=== PATIENT | male | born 1950 | race Caucasian/White ===

== ENCOUNTER 2017-07-14 19:32 | Inpatient (IN) | payer MEDICARE, MEDICAID ==
[2017-07-14 20:10] VITALS: BP 143/74
[2017-07-14] MEDS ORDERED: Maalox 30 mL Cup PO PRN (20:18)
[2017-07-14] MEDS ORDERED: Magnesium Hydroxide (MOM) 30 mL UDC PO PRN (20:18)
[2017-07-15 06:49] LABS: ALB/GLOB RATIO 1.1 (1.0-1.8); ALKALINE PHOSPHATASE 70 U/L (34-104); ANION GAP 9.3 (7.0-16.0); BILIRUBIN,TOTAL 0.2 mg/dL (0.3-1.0); BUN - UREA NITROGEN 24 mg/dL (7-25); BUN/CREATININE RATIO 26.7; CALCIUM SERUM 9.1 mg/dL (8.6-10.3); CARBON DIOXIDE 27.5 mEq/L (21.0-31.0); CHLORIDE 105 mEq/L (98-107); CREATININE - SERUM 0.9 mg/dL (0.7-1.3); GLUCOSE 134 mg/dL (70-105); POTASSIUM SERUM 3.8 mEq/L (3.5-5.1); SGOT 11 U/L (13-39); SGPT/ALT 9 U/L (7-52); SODIUM SERUM 138 mEq/L (136-145)
[2017-07-15] MEDS: Multivitamin Tab PO SCH (09:53)
--- NOTE | 2017-07-15 12:00 | Psychosocial Evaluation ---
DATE OF SERVICE: AGE: 67. SEX: Male. PHYSICIAN: Dr. Bullard. CHIEF COMPLAINT: "I want to kill myself." HISTORY OF PRESENT ILLNESS: The patient is a 67-year-old male with history of what seems to be bipolar disorder. The patient was placed on 5150 hold because of suicidal ideations with plan to jump in front of traffic according to the hold that was written by Police. The patient has history of multiple suicidal attempts and history of what seems to be bipolar disorder. The patient is taking Risperdal, Zyprexa. He is severely anxious and severely depressed. The patient lives in a [facility] and has been having lack of motivations and lack of energy. Also, has been having severe mood swings and severe anxiety. The patient has history of suicidal attempts by overdose on pills or cutting himself. PAST PSYCHIATRIC HISTORY: The patient has history of bipolar and previous treatment and hospitalization. He is currently taking Zyprexa, Risperdal, and Depakote. PAST MEDICAL HISTORY: The patient is a ild-ahlplqc-qdebdquwg diabetic and hypertensive. FAMILY PSYHIATRIC AND CHEMICAL DEPENDENCY HISTORY: Not known. CHEMICAL DEPENDENCY HISTORY FOR THE PATIENT: The patient denies alcohol or drug use. SOCIAL HISTORY: The patient is single, never and has no children. The patient said that he thinks that he was and his , but it is not clear if that is true. The patient is on disability. He denies legal issues or abuse issues. ALLERGIES: INSULIN AND SULFA. MENTAL STATUS EXAMINATION: The patient appears older than his stated age. Anxious. Irritable mood. Angry. Disheveled. Thought processes are circumstantial with flight of ideas. The patient denies auditory or visual hallucinations, but seems to be suspicious and paranoid. The patient admits to suicidal ideations with plan, but denies homicidal ideations. The patient is alert and oriented to time, place, person, and situation. Intact immediate, recent and remote memories. Poor insight and he does not think he needs to be in the hospital. Poor judgment and he wants to jump in front of traffic. He seems to be of average intelligence based on his verbal ability. ASSESSMENT: PRIMARY DIAGNOSIS: Bipolar disorder, depressed phase. MEDICAL DIAGNOSIS: 1. Wbb-lrokiyg-kakwtonuf diabetes mellitus. 2. Hypertension. TREATMENT PLAN: The patient was taking Risperdal and Zyprexa, and we will gradually decrease Zyprexa because he said it made him dizzy and we will give Risperdal. Also, we will monitor Depakote blood level. Also, we will work on his ineffective coping. ESTIMATED LENGTH OF STAY: 7-10 days. THE PATIENT'S STRENGTHS AND WEAKNESSES: The patient's seems to be in relatively fair health. Weakness is his ineffective coping. AFTER DISCHARGE PLAN: The patient will return to [facility] with plans for outpatient treatment and follow up there. The patient also is a candidate for partial program. CRITERIA FOR DISCHARGE: The patient will not be suicidal and will stabilize with psychotropic medications. JOB# [id number]
[2017-07-16] MEDS: Multivitamin Tab PO SCH ×2 (09:06→09:22)
[2017-07-16] MEDS: Nicotine 14 mg/24 hr Tdm TD SCH (09:15)
--- NOTE | 2017-07-16 13:03 | Progress Notes ---
DATE: SUBJECTIVE: Chart reviewed and the patient interviewed. Also discussed the patient's condition with the staff and reviewed records and labs. The patient is still extremely agitated and in irritable mood. The patient also is suspicious and paranoid. Also, is still wandering around the unit in angry and confused state. Also, is still disheveled and he is also uncooperative with the staff, especially when they try to redirect him. The patient also is still feeling hopeless and he has no place to go. ASSESSMENT: The patient is still psychotic and can be dangerous to others and self. TREATMENT PLAN: We will continue monitoring his behavior and his condition closely. Also, yesterday, the patient refused to take the psych medications. Discussed with the patient the importance of taking the psych medications, and benefits and alternatives, and hopefully he will start to take it today. JOB# [id number]
--- NOTE | 2017-07-16 14:30 | History & Physical ---
ADMIT DATE: 07/14/2017 REASON FOR ADMISSION: Mental health disorder. HISTORY OF PRESENT ILLNESS: This is a 67-year-old male with underlying history of hypertension, diabetes, nicotine dependency, and mental psychiatric disorder, was admitted to [facility] for evaluation of underlying mental disorder by Dr. Xiong. Dr. Xiong requested medical H and P on this patient. The patient at the time of evaluation, he is doing fine. Denies any chest pain, no shortness of breath, no dizziness, no palpitations or any vomiting, diarrhea, any abdominal pain, or any other complaints. PAST MEDICAL HISTORY: Diabetes and hypertension. PAST SURGICAL HISTORY: Denies. FAMILY HISTORY: Noncontributory. SOCIAL HISTORY: Lives at home, ex-smoker. Denies any current alcohol, tobacco or street drug use. CURRENT MEDICATIONS: Tylenol, Maalox, Zestril, Ativan, milk of magnesia, Glucophage, Zyprexa, Risperdal, nicotine, Depakote, and Ambien. REVIEW OF SYSTEMS: As per HPI, 12-point system appears negative. PHYSICAL EXAMINATION: VITAL SIGNS: Temperature 97.9, pulse 65, respirations 20, blood pressure 142/60, and oxygen 94% on room air. Pain 0/10. GENERAL APPEARANCE: The patient does not seem in acute distress. CARDIOVASCULAR: S1 and S2 normal. LUNGS: Clear to auscultation. ABDOMEN: Soft, nontender. No distention. NEUROLOGIC: The patient is awake. Moves all extremities. Grossly nonfocal exam. EXTREMITIES: No edema. AVAILABLE LABORATORY DATA: Sodium 130, potassium 3.8, BUN ____, creatinine 0.9, AST 11, ALT 9. Nares swab negative for MRSA. ASSESSMENT: 1. Hypertension. 2. Diabetes mellitus. 3. Nicotine dependence. 4. Mental disorder. PLAN: Continue patient's metformin, lisinopril, and nicotine patch. Psych management per psychiatrist. The patient has been medically stable to participate in activity at the [facility]. JOB# [id number]
[2017-07-17] MEDS: Multivitamin Tab PO SCH (09:13)
[2017-07-17] MEDS: Nicotine 14 mg/24 hr Tdm TD SCH (09:20)
--- NOTE | 2017-07-17 23:17 | Progress Notes ---
DATE: 07/17/2017 SUBJECTIVE: Chart reviewed and the patient interviewed. Also, discussed the patient's condition with the staff and reviewed records and labs. The patient is still angry and he is still in irritable mood. The patient also is argumentative and he is still threatening others. He also is demanding. The patient also is still unable to provide any safe plan for self-care. Also, refusing to take psych medications for no apparent reason. During interview, the patient is disheveled and he is in angry and in irritable mood. Also, thought processes are circumstantial with flight of ideas. ASSESSMENT: The patient is still psychotic. TREATMENT PLAN: I advised the patient to take his psychotropic medications and I discussed with him benefits, side effects, and alternatives. Hopefully, the patient will start to take the medications. Also, we will continue to work on his poor impulse control and his paranoia. JOB# [id number]
[2017-07-18] MEDS: Nicotine 14 mg/24 hr Tdm TD SCH (08:32)
[2017-07-18] MEDS: Multivitamin Tab PO SCH (08:32)
--- NOTE | 2017-07-19 02:56 | Progress Notes ---
DATE: 07/18/2017 SUBJECTIVE: Chart reviewed and the patient interviewed. Also discussed the patient's condition with the staff and reviewed records and labs. The patient continued to be extremely angry and extremely agitated. The patient also is still in irritable mood. Also, he is still having mood swings and he is still at times calm and cooperative and other times is agitated and demanding. Also, still resisting care and is still not compliant with taking his medications. ASSESSMENT: The patient is still psychotic and can be dangerous to others. TREATMENT PLAN: We will continue monitoring his behavior and his condition closely. Also, continue to work on his irritability and also he is compliant with taking his medications and we will continue to follow up. PSYCHIATRIC# [id number]
[2017-07-19] MEDS: Nicotine 14 mg/24 hr Tdm TD SCH (08:55)
[2017-07-19] MEDS: Multivitamin Tab PO SCH (08:56)
--- NOTE | 2017-07-19 21:34 | Progress Notes ---
DATE: SUBJECTIVE: The patient seen, chart reviewed, discussed with staff. The patient is currently in the hospital, suicidal, plan to jump in front of traffic, history of multiple suicide attempts, history of bipolar, anxious, overwhelmed. No motivation, lack of energy, mood swings. The patient on [id number] states he feels clinically okay. He does not know where he is or why he is here, still gets angry, still impulsive, ____ SI however. ASSESSMENT: The patient remains symptomatic, depressed, isolative, seems confused, disoriented, mood swings, concerns for continue agitation. PLAN: Continue to monitor. Given the severity of the patient's ongoing symptoms, he is not safe for discharge. Medications were reviewed in detail. JOB# [id number]
[2017-07-20] MEDS: Multivitamin Tab PO SCH (08:46)
[2017-07-20] MEDS: Nicotine 14 mg/24 hr Tdm TD SCH (08:46)
--- NOTE | 2017-07-20 12:12 | Progress Notes ---
DATE: SUBJECTIVE: The patient seen, chart reviewed, discussed with staff. The patient is currently in the hospital, suicidal, plan to jump in front of traffic, history of multiple suicide attempts, history of apparently bipolar. The patient still responding to internal stimuli, still noted to be confused, disoriented, not safe for a lower level of care, still with behaviors indicative of ongoing symptoms, still with some periods of agitation, irritability. Medications reviewed. No side effects noted. PLAN: We will continue to monitor. The patient is not safe for discharge. Still noted to be confused, suspicious, guarded, labile. We will monitor and follow up. JOB# [id number]
[2017-07-21] MEDS: Multivitamin Tab PO SCH (09:14)
[2017-07-21] MEDS: Nicotine 14 mg/24 hr Tdm TD SCH (09:19)
--- NOTE | 2017-07-22 01:34 | Progress Notes ---
DATE: 07/21/[address] Bullard. Case was discussed with staff of the patient, reviewed records. This is a 67-year-old male who was admitted on 07/14/2017 with a history of bipolar disorder. I was keeping ____ discharge. He planned to jump in front of traffic. He was brought by the police with a history of multiple suicide attempts and history of bipolar disorder. The patient was also on Zyprexa. He was anxious, depressed. He lives in a boarding care facility with lack of motivation and energy, severe mood swings, irritability. He has a history of prior suicide attempt by overdose and cutting. The patient currently continues to be depressed, overwhelmed, but he is minimizing any current intent to harm himself or anybody. He is on Zyprexa 5 mg twice a day, Risperdal 1 mg twice a day with no side effects, no sedation, and no nausea. He is also on Depakote 500 mg twice a day. I will be increasing his Risperdal to 2 mg twice a day. So far no side effects, no sedation, no nausea and no extrapyramidal symptoms. We will continue to work with the patient in group therapy, milieu therapy, and adjust the medications as needed. JOB# [id number]
[2017-07-22] MEDS: Nicotine 14 mg/24 hr Tdm TD SCH (10:55)
[2017-07-22] MEDS: Multivitamin Tab PO SCH (10:55)
--- NOTE | 2017-07-23 00:15 | Progress Notes ---
DATE: 07/22/2017 Case was discussed with staff of the patient, reviewed records. Covering for Dr. Bullard. The patient continues to be depressed. He is minimizing any current intent to harm himself. Upon admission, he said wanted something ____. He had multiple suicide attempts with a history of bipolar disorder. The patient has been refusing medication also by the staff today, so may have to be ____ and I talked to the patient about the reason. I discussed with him the side effects of his medication but he smiled inappropriately, so he may need to be ____ decision up to Dr. Bullard tomorrow since I cannot initiate it for him as I am not sure what time would be appropriate for him. I will continue outpatient group therapy, milieu therapy, adjust medications as needed. JOB# [id number]
[2017-07-23] MEDS: Multivitamin Tab PO SCH (10:05)
[2017-07-23] MEDS: Nicotine 14 mg/24 hr Tdm TD SCH (10:06)
--- NOTE | 2017-07-23 13:07 | General Progress Note ---
Subjective - Review of Systems Service Date: 07/23/17 Subjective: Patient seen and examined denied any complaints Objective - Results Result Diagrams: 07/15/17 06:28 Recent Labs: Laboratory Last Values Sodium 138 mEq/L (136-145) 07/15/17 06:28 Potassium 3.8 mEq/L (3.5-5.1) 07/15/17 06:28 Chloride 105 mEq/L (98-107) 07/15/17 06:28 Carbon Dioxide 27.5 mEq/L (21.0-31.0) 07/15/17 06:28 Anion Gap 9.3 (7.0-16.0) 07/15/17 06:28 BUN 24 mg/dL (7-25) 07/15/17 06:28 Creatinine 0.9 mg/dL (0.7-1.3) 07/15/17 06:28 Est GFR ( Amer) > 60.0 ml/min (>90) 07/15/17 06:28 Est GFR (Non-Af Amer) > 60.0 ml/min 07/15/17 06:28 BUN/Creatinine Ratio 26.7 07/15/17 06:28 Glucose 134 mg/dL (70-105) H 07/15/17 06:28 POC Glucose 171 MG/DL (70 - 105) H 07/22/17 22:30 Calcium 9.1 mg/dL (8.6-10.3) 07/15/17 06:28 Total Bilirubin 0.2 mg/dL (0.3-1.0) L 07/15/17 06:28 AST 11 U/L (13-39) L 07/15/17 06:28 ALT 9 U/L (7-52) 07/15/17 06:28 Alkaline Phosphatase 70 U/L (34-104) 07/15/17 06:28 Total Protein 7.3 gm/dL (6.0-8.3) 07/15/17 06:28 Albumin 3.8 gm/dL (4.2-5.5) L 07/15/17 06:28 Globulin 3.5 gm/dL 07/15/17 06:28 Albumin/Globulin Ratio 1.1 (1.0-1.8) 07/15/17 06:28 Valproic Acid < 10.0 ug/mL (50.0-100.0) L 07/15/17 06:28 - Physical Exam Vitals and I&O: Vital Signs Temp 0 F 07/23/17 06:49 Pulse 77 07/23/17 10:05 Resp 20 07/22/17 21:00 BP 139/71 07/23/17 10:05 Pulse Ox 94 07/22/17 21:00 Intake & Output 07/22/17 07/23/17 07/23/17 18:59 06:59 18:59 Intake Total 1000 240 Balance 1000 240 Intake: Oral 1000 240 Other: # Voids 4 3 # Bowel Movements 1 0 Active Medications: Current Medications Acetaminophen (Tylenol) 650 mg PO Q4HR PRN PRN Reason: Mild Pain / Temp above 100 Stop: 09/12/17 20:17 Last Admin: 07/22/17 21:45 Dose: 650 mg Al Hydrox/Mg Hydrox/Simethicone (Maalox) 30 ml PO Q4HR PRN PRN Reason: GI DISTRESS Stop: 09/12/17 20:17 Lisinopril (Zestril) 10 mg PO DAILY DEBBI Stop: 09/13/17 08:59 Last Admin: 07/23/17 10:05 Dose: 10 mg Lorazepam (Ativan) 0.5 mg PO Q4HR PRN; Protocol PRN Reason: Agitation Stop: 09/20/17 22:37 Last Admin: 07/23/17 01:26 Dose: 0.5 mg Metformin HCl (Glucophage) 500 mg PO BIDWM DEBBI Stop: 09/13/17 07:59 Last Admin: 07/23/17 10:05 Dose: 500 mg Multivitamins/Vitamin C (Theragran) 1 tab PO DAILY DEBBI Stop: 09/13/17 08:59 Last Admin: 07/23/17 10:05 Dose: 1 tab Nicotine (Nicotine Transdermal System) 14 mg TD DAILY DEBBI Stop: 09/14/17 08:59 Last Admin: 07/23/17 10:06 Dose: Not Given Olanzapine (Zyprexa) 5 mg PO BID DEBBI PRN Reason: Protocol Stop: 09/13/17 08:59 Last Admin: 07/23/17 10:06 Dose: Not Given Risperidone (Risperdal) 2 mg PO BID DEBBI PRN Reason: Protocol Stop: 09/19/17 16:59 Last Admin: 07/23/17 10:06 Dose: Not Given Valproate Sodium (Depakene) 500 mg PO BID DEBBI PRN Reason: Protocol Stop: 09/13/17 08:59 Last Admin: 07/23/17 10:06 Dose: Not Given Zolpidem Tartrate (Ambien) 5 mg PO HS PRN PRN Reason: Insomnia Stop: 09/20/17 22:38 Cardiovascular: Regular rate Lungs: Clear to auscultation Assessment/Plan - Assessment Assessment: HTN DM II Psych disorder - Plan Plan: Medically stable Continue current meds DC planning per Psych Nutritional Asmnt/Malnutr-PDOC - Dietary Evaluation Malnutrition Findings (Please click <Entered> for more info): Nutritional Asmnt/Malnutrition Start: 07/16/17 19: 01 Text: Status: Complete Freq: Document 07/16/17 19:01 GSUN (Rec: 07/16/17 19:13 GSUN [id number]) Nutritional Asmnt/Malnutrition Patient General Information Nutritional Screening Consult Diagnosis Bipolar disorder depressed phase Pertinent Medical Hx/Surgical Hx DM, HTN Subjective Information 67 [address] consult for DM BG 188 on adm. Pt ambulates aroudn unit. Spoke to pt in rec room. Pt stated he is aware of being diabetic, has been for 15yrs, however POC glucose 119 today and wishes to be on regular diet. Biological Sciences Professor explained purpose of [facility] [place] diet, portion sizes, POC glucose vs insulin, pt unwilling to comprehend at this time. RN Johanna aware of nutrition situation. RN also stated pt is 265lb requiring larger portions. Avg PO intake 100% of meals since adm, current diet order only providing to meet 74% of lower end kcal needs with PO intake 100%. Teeth intact, no difficulties. No muscle fat wasintg noted. Current Diet Order/ Nutrition Support [id number] Pertinent Medications MOM, Glucophage, Theragran Pertinent Labs 07/15: glucose 134H Nutritional Hx/Data Height 1.85 m Height (Calculated Centimeters) 185.4 Current Weight (lbs) 120.202 kg Weight (Calculated Kilograms) 120.2 Weight (Calculated Grams) 151626.0 Usual body Weight (lbs) 265 [place] Body Weight 204 Recent Weight Change No Weight Status Obese GI Symptoms Food Allergies No Skin Integrity/Comment: [place] 19. Skin intact. Current %PO Good (75-100%) Estimated Nutritional Goals BEE in Kcals: Adj wt of IBW Calories/Kcals/Kg AdjBW 204.3lb/92.8kg Kcals Calculated 2320-2784kcal (25-30kcal/kg) Protein: Adj wt of IBW Protein Calculated 93g (1g/kg) Fluid: ml 2320-2784ml (1ml/kcal) Nutritional Problem 1. Problem Problem Inadequate protein energy intake related to Etiology estimated nutritinoal needs aeb Signs/Symptoms: current diet order only provides to meet 74% lower end kcal needs Intervention/Recommendation Comments 1. Recommend [id number] with double portion veegtable and protein to better meet nturitinoal eneds while promoting glycemic control. Current diet order only provided to meet 74% lower end kcal eneds. 2. Provied nutrition edu DM as able, pt declined at this time. Expected Outcomes/Goals Expected Outcomes/Goals 1. PO intake to meet at least 75% of estimated nutritinoal eneds.
--- NOTE | 2017-07-23 17:55 | Progress Notes ---
DATE: SUBJECTIVE: Chart reviewed and the patient interviewed. Also discussed the patient's condition with the staff and reviewed records and labs. The patient is still anxious and is still agitated and in irritable mood. The patient also is still having episodes of anger and irritability. The patient also still seems to be manipulative at time and he states things that the staff like to hear in order to continue his hospital course. He is talking about his desire to kill himself by banging his head against the wall. On the other hand, the patient is still restless and is still paranoid at times, but decreased behavioral problems. ASSESSMENT: The patient is still agitated and noncompliant with treatment and medications. TREATMENT PLAN: Still working with case resolution specialist in regard to discharge plans and so far no place accepted the patient yet. At the same time, continue to work on his compliance with medications and so far, the patient is still refusing to take any medications, but we will try to get the patient to take his psychotropic medications. Also, we will monitor his behavior closely because of his suicidal ideations. [facility]# [id number]
[2017-07-24] MEDS: Multivitamin Tab PO SCH (08:41)
[2017-07-24] MEDS: Nicotine 14 mg/24 hr Tdm TD SCH (08:42)
--- NOTE | 2017-07-24 22:29 | Progress Notes ---
DATE: 07/24/2017 SUBJECTIVE: Chart reviewed and the patient interviewed. Also discussed the patient's condition with the staff and reviewed records and labs. The patient remains in angry and in irritable mood. The patient also is still pacing up and down the unit in angry mood. Also, is still restless and he is still at times, demanding. At the same time, the patient has difficulty making decisions and is still unable to help aids social worker in order to find placement. The patient also is still uncooperative and is refusing to take medications. He also still needs lots of redirections. The patient is disheveled and he is refusing all his psych medications for no apparent reason. The patient also said that he has been hearing voices, but less than before. ASSESSMENT: The patient is still psychotic. TREATMENT PLAN: Continue to monitor his condition and his medications closely. Also, continue to work on his discharge plans and placement issue and he is being uncooperative. Also discussed with the patient the importance of taking his psych medications and also discussed benefits, side effects and alternatives with the patient. JOB# [id number]
[2017-07-25] MEDS: Multivitamin Tab PO SCH (08:08)
[2017-07-25] MEDS: Nicotine 14 mg/24 hr Tdm TD SCH (08:15)
[2017-07-26] MEDS: Multivitamin Tab PO SCH (08:25)
[2017-07-26] MEDS: Nicotine 14 mg/24 hr Tdm TD SCH (08:32)
--- NOTE | 2017-07-26 18:17 | Progress Notes ---
DATE: SUBJECTIVE: Chart reviewed and the patient interviewed. Also, discussed the patient's condition with the staff and reviewed records and labs. The patient is still extremely angry and agitated. The patient also is restless and he is in irritable mood. He also has mood swings and has severe anxiety. He also is interacting with anger and irritability. Otherwise, the patient is slightly easier to redirect him. ASSESSMENT: The patient is still psychotic and agitated. TREATMENT PLAN: The patient continued to refuse taking psychotropic medications. The patient is also in angry and irritable mood and needs close monitoring. We will continue to work on his compliance with medications and also continue to work on his discharge plans and placement issue and continue to follow up. [facility]# [id number]
--- NOTE | 2017-07-27 02:04 | Progress Notes ---
DATE: SUBJECTIVE: The patient is currently in the hospital. History of suicidal ideations, plans to jump in front of traffic. On [id number], the patient states that he feels clinically the same, "very bad, depressed, easily agitated, very irritable." States he feels like no one is helping him. He is quite anxious, depressed. The patient is still endorsing SI, not manuel for safety, still uncooperative, does not want to take medications or follow his treatment plan. ASSESSMENT: The patient remains symptomatic, still depressed, withdrawn, concerns that he may be psychotic. PLAN: We will continue to monitor. Given his ongoing symptoms, he is not safe for discharge at this time. [facility]# [id number]
[2017-07-27] MEDS: Nicotine 14 mg/24 hr Tdm TD SCH (08:35)
[2017-07-27] MEDS: Multivitamin Tab PO SCH (08:35)
--- NOTE | 2017-07-28 02:35 | Progress Notes ---
DATE: 07/27/2017 SUBJECTIVE: The patient seen, chart reviewed, discussed with staff. The patient is currently in the hospital, suicidal, thoughts to jump into traffic. On [id number], the patient states he feels" the same" depressed, overwhelmed, does not feel the medications are helping. States his voices are ongoing, still feeling suicidal. Does not want to take the medications any longer. Sleeping fairly well, isolative and withdrawn. ASSESSMENT: The patient remains symptomatic, still depressed, still endorsing suicidal ideation voices. PLAN: We will continue to monitor, encourage medication compliance. Given his ongoing symptoms, he is not safe for discharge. JOB# [id number]
[2017-07-28] MEDS: Multivitamin Tab PO SCH (08:18)
[2017-07-28] MEDS: Nicotine 14 mg/24 hr Tdm TD SCH (08:19)
[2017-07-29] MEDS: Nicotine 14 mg/24 hr Tdm TD SCH (08:14)
[2017-07-29] MEDS: Multivitamin Tab PO SCH (08:14)
--- NOTE | 2017-07-29 18:30 | Progress Notes ---
DATE: 07/25/2017 SUBJECTIVE: Chart reviewed and the patient interviewed. Also discussed the patient's condition with the staff and reviewed records and labs. The patient continued to be in angry and in irritable mood. The patient also is still uncooperative with his treatment and he is still refusing to take any psych medications. He also is still resisting care. On the other hand, the patient is slightly easier to redirect him. ASSESSMENT: The patient is still psychotic. TREATMENT PLAN: We will continue monitoring his behavior and his condition closely. Also, continue adjusting psychotropic medications and working on discharge plans and placement issue. JOB# [id number]
--- NOTE | 2017-07-30 03:13 | Progress Notes ---
DATE: 07/29/2017 SUBJECTIVE: Chart reviewed and the patient interviewed. Also discussed the patient's condition with the staff and reviewed records and labs. The patient seems to be slightly calmer than before, but he is still refusing to take any of the psych medications, "it make me dizzy and fall down." The patient is supposed to take Zyprexa 5 mg twice a day, but he is refusing to take. He is compliant with taking his diabetes and high blood pressure medications. The patient also is still having problems with his mood and still has episodes of anger and irritability. He also still has no place to go and no place accepting him. Also, during interview, the patient is angry and restless and still needs redirections. ASSESSMENT: The patient is still agitated and need placement. TREATMENT PLAN: We will discontinue Risperdal. The patient will take Zyprexa by itself. Also, continue to work with case reviewer in regard to placement issue and in regard to discharge plans and continue to follow up. JOB# [id number]
[2017-07-30] MEDS: Multivitamin Tab PO SCH ×2 (08:35→09:00)
[2017-07-30] MEDS: Nicotine 14 mg/24 hr Tdm TD SCH (08:36)
--- NOTE | 2017-07-30 22:26 | Discharge Summary ---
DATE OF DISCHARGE: 07/30/2017 AGE: 67. SEX: Male. PHYSICIAN: Juan Miguel. FINAL DIAGNOSIS/PRIMARY DIAGNOSIS: Schizoaffective disorder, bipolar type, with psychotic features. REASON FOR HOSPITALIZATION: The patient was admitted to the hospital because of increased agitation, irritability, psychosis, and aggressive behavior. HOSPITAL COURSE: The patient continued to be agitated and in an irritable mood. The patient also was aggressive and demanding. The patient refused to take any psychotropic medications, saying that "it caused me dizziness and falls." Different trials to convince the patient to take medications were not successful and the patient also was taking his other medications for the medical conditions that he has, but he refused to take any psychotropics. Raised petition was not going to be approved or helpful because of his complaining of side effects of the medication and he said that he tried different kinds in the past. Gradually, the patient was calm and was not as agitated, but placement was an issue. Finally, [facility] accepted the patient to go there and the patient was discharged there. During hospitalization, the patient had no major medical problems and he was compliant with taking his medications. AFTER DISCHARGE PLANS: The patient was discharged from the hospital and went to [facility] with the plans for followup there. JOB# [id number]
== END 2017-07-30 14:00 | DRG 885 ==
LOC: GERO 19:32
PROVIDERS: ADMIT Psychiatry & Neurology Psychiatry; ATTEND Psychiatry & Neurology Psychiatry
DX: F25.0 Schizoaffective disorder, bipolar type (principal); E11.9 Type 2 diabetes mellitus without complications; I10 Essential (primary) hypertension; F31.30 Bipolar disorder, current episode depressed, mild or moderate severity, unspecified; F17.210 Nicotine dependence, cigarettes, uncomplicated; F29 Unspecified psychosis not due to a substance or known physiological condition; Z88.2 Allergy status to sulfonamides; Z88.8 Allergy status to other drugs, medicaments and biological substances
CPT/HCPCS: 36415-UA; 80053-TC; 80164-TC; 82948-90; 90899; G0410; J7051; Z7610